=== PATIENT | female | born 1945 | race Caucasian/White ===

== ENCOUNTER 2023-04-27 08:14 | Day surgery (SDC) | payer OTHER | END 2023-04-27 22:43 | disposition home or self-care (01) | LOC: MOI US 08:14 | DX: C50.412 Malignant neoplasm of upper-outer quadrant of left female breast (principal); Z17.0 Estrogen receptor positive status [ER+] | CPT/HCPCS: 19285; 77065; A4648 ==

== ENCOUNTER 2023-05-02 06:36 | Day surgery (SDC) | payer OTHER ==
[~2023-05-02] VITALS: Ht 154.9 cm; Wt 63.2 kg
[2023-05-02] VITALS (12 sets, daily range): BP systolic 121–155; BP diastolic 52–87
[~2023-05-02 06:36] MED LIST: FISH OIL PO; MERIBIN5 MG PO; RED YEAST RICE PO
--- NOTE | 2023-05-02 08:00 | NUR ---
PRE OP NOTE PT A&OX4, BREATHING RA, NO COMPLAINTS. Ambulatory in Day Surgery Patient confirms NPO status and agrees with scheduled surgery. Pre-Op teaching done. Pt verbalizes understanding. Patient States Post-Procedure ride home has been arranged.
--- NOTE | 2023-05-02 11:39 | NUR ---
DISCHARGE NOTE PT A&OX4, BREATHING RA, MEDICATED FOR PAIN PER MD ORDERS, VSS. PT TOLERATING PO FLUIDS AND FOOD. Discharge instructions reviewed with patient. Patient verbalizes understanding. Copy given to patient to take home. Dressing to procedure site clean, dry, intact with no visible drainage, swelling, erythema or bruising noted.RICKY DRAIN INTACT AND DRAINING BRIGHT RED DRAINAGE, 5ML EMPTIED DURING RECOVERY STAY. BREAST BINDER IN PLACE AND STRAPS ATTACHED. Discharged via wheelchair to private car for ride home.
== END 2023-05-02 11:35 | disposition home or self-care (01) ==
LOC: ORSCMMR 06:36 → ORD 08:00 → ORSCMMR 11:35
PROVIDERS: Surgery
PROC: 0HBU0ZZ Excision of Left Breast, Open Approach (ICD-10-PCS; principal; 2023-05-02 08:00)
PROC: 07B60ZX Excision of Left Axillary Lymphatic, Open Approach, Diagnostic (ICD-10-PCS; principal; 2023-05-02 08:00)
DX: C50.412 Malignant neoplasm of upper-outer quadrant of left female breast (principal); C77.3 Secondary and unspecified malignant neoplasm of axilla and upper limb lymph nodes; Z17.0 Estrogen receptor positive status [ER+]
CPT/HCPCS: 76098; 88307; A9270; J0690; J1100; J2250; J2405; J2704; J3010; J7120; Q9968